=== PATIENT | female | born 1955 | race Caucasian/White ===

== ENCOUNTER 2021-07-14 13:53 | Emergency (ER) | payer OTHER, SELFPAY ==
--- NOTE | ~2021-07-14 | CT_ITS ---
EXAMINATION: CT diagnostic chest wo con DATE: 07/14/2021 17:10 INDICATION: Shortness of breath. Covid-positive. TECHNIQUE: Computed tomography (CT) of the chest was performed without intravenous contrast. Automate d exposure control and iterative reconstruction technique were employed. Exam dose: 365.75 mGy-cm to patrick exam DLP. COMPARISON: None FINDINGS: Heterogeneous enlarged left lobe of thyroid gland. There is mild primarily peripheral later al lingular and minimal left perihilar infiltrate. There are mild peripheral posteromedial bilateral lower lobe infiltrates or atelectasis, left greater than right. Middle lobe and left lower lobe calcified pulmonary granulomas. Calcified left hilar nodes. Normal heart size. Coronary artery calcification. No thoracic aortic aneurysm. No pericardial or pleu ral effusion. No hilar or mediastinal mass lesion or lymphadenopathy. Normal morphology of the adrenal glands. Very small sliding hiatal hernia. Diffuse idiopathic skeletal hyperostosis of the thoracic spine. 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 Reviewed, dictated and finalized at [facility] 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
[2021-07-14 14:45] VITALS: BP 157/67; PULSE 77; RESP 20; TEMP 36.3; O2SAT 98
--- NOTE | 2021-07-14 16:30 | ECG_ITS ---
Measurements Intervals [place] Rate: 70 P: 57 OR: 150 QRS: 14 QRSD: 85 T: 40 QT: 393 QTc: 426 Interpretive Statements SINUS RHYTHM POSSIBLE LEFT ATRIAL ENLARGEMENT LOW QRS VOLTAGE IN PRECORDIAL LEADS CONSIDER INFERIOR INFARCT, AGE INDETERMINATE BASELINE ARTIFACT- I, III, AVL, V5 ABNORMAL ECG Electronically Signed On 07-14-2021 20:31:40 CHILD ADVOCATE by Rajendra Adams D.O.
[2021-07-14] MEDS: ALBUTEROL SULFATE (*SP) INHALER 4 PUFF INHALATION (16:45)
[2021-07-14] MEDS: DEXAMETHASONE SOD PHOS INJ 4 MG/ML VIAL IV PUSH (16:50)
[2021-07-14 17:00] LABS: Base Excess ABG -0.2 mmol/L (0-2); Basophils Absolute Auto 0.01 K/mm3 (0.00-0.10); Basophils Percent Auto 0.2 % (0.0-1.0); Eosinophils Absolute Auto 0.01 K/mm3 (0.02-0.50); Eosinophils Percent Auto 0.2 % (1.0-6.0); HCO3 ABG 22.9 mmol/L (23-29); Hematocrit 40.7 % (35.0-49.0); Hemoglobin 13.3 g/dL (12.0-15.0); Lymphocytes Absolute Auto 2.06 K/mm3 (1.10-4.50); Lymphocytes Percent Auto 50.2 % (18.0-42.0); Mean Corpuscular HGB Conc 32.7 g/dL (32.0-36.0); Mean Corpuscular Hemoglobin 29.4 pg (27.0-31.0); Mean Platelet Volume 10.6 fl (9.2-11.8); Monocytes Absolute Auto 0.32 K/mm3 (0.10-0.90); Monocytes Percent Auto 7.8 % (2.0-11.0); Neutrophils Absolute Auto 1.7 K/mm3 (1.7-7.2); Neutrophils Percent Auto 41.6 % (50.0-70.0); Oxygen Content ABG 18.3 %vol (16.0-22.0); Oxygen Saturation ABG 96.4 % (95-97); Oxyhemoglobin 96.1 % (94-100); PCO2 ABG 32.7 mmHg (35-45); PO2 ABG 86.4 mmHg (80-90); Platelet Count Result 169 K/mm3 (150-420); Red Blood Count 4.52 M/mm3 (4.20-5.40); Red Cell Distribution Width 12.9 % (11.6-14.4); Total Hemoglobin 13.5 g/dL (12.0-18.0); White Blood Count 4.1 K/mm3 (4.8-10.8); pH ABG 7.46 (7.35-7.45)
[2021-07-14 17:02] LABS: Device ROOM AIR; Modified Allen's Test Pass; Site Drawn RIGHT RADIAL
[2021-07-14] MEDS: UMECLIDINIUM BROMIDE 62.5 MCG ELLIPTA 1 PUFF INHALATION ×2 (17:17→17:18)
[2021-07-14 17:22] LABS: Lactic Acid Reflex 1.1 mmol/L (0.4-2.0)
[2021-07-14 17:23] LABS: Alanine Aminotransferase 31 U/L (14-59); Albumin Level 3.5 g/dL (3.4-5.0); Alkaline Phosphatase 67 U/L (46-116); Anion Gap 8 mmol/L (8-16); Aspartate Amino Transferase 16 U/L (15-37); Bilirubin,Total 0.3 mg/dL (0.00-1.00); Blood Urea Nitrogen 18 mg/dL (7-18); Calcium 8.6 mg/dL (8.5-10.1); Carbon Dioxide 30 mmol/L (21-32); Chloride 102 mmol/L (98-108); Estimated CRCL calculation 93 ml/min; Estimated Glomerular Filt Rate > 60; Glucose 157 mg/dL (70-99); NT Pro B Type Natriuretic Pept 122 pg/mL (0-125); Osmolality Calculated 294 mOsm/kg (285-295); Potassium 3.5 mmol/L (3.5-5.1); Sodium 140 mmol/L (136-145); Total Protein 7.1 g/dL (6.4-8.2)
[2021-07-14 17:53] LABS: Influenza A QL RT-PCR Negative (Negative); Influenza B QL RT-PCR Negative (Negative); SARS-CoV-2 RNA PCR Positive (Negative)
[2021-07-14] MEDS: AZITHROMYCIN 250 MG TABLET 500 MG PO (18:34)
--- NOTE | 2021-07-14 18:50 | ED.SOB ---
HPI - SOB/Dyspnea General Chief Complaint: Shortness of Breath/Dyspnea Stated Complaint: shortness of breath /muscle weakness Time Seen by Provider: 07/14/21 13:55 Source: patient and RN notes reviewed Mode of arrival: ambulatory Limitations: no limitations History of Present Illness MD elicited complaint: shortness of breath Pertinent past history: other (recently covid-19+) Onset (ago): day(s) (2 days. ) Context: recent illness Timing: progressively worsening Severity: moderate Exacerbating factors: nothing Relieving factors: nothing Associated symptoms: dizziness Treatment prior to arrival: none Related Data Home oxygen amount: none Allergies Allergy/AdvReac Type Severity Reaction Status Date / Time No Known Allergies Allergy Mild Verified 02/07/08 14:36 Review of Systems Review of Systems: All systems reviewed & are unremarkable except as noted in HPI and below Respiratory: Respiratory: Reports cough and Reports dyspnea Neurologic: Reports dizziness PMFSH Past Medical History Medical History (Updated 07/16/21 @ 10:05 by Katina Herrera MD) Community acquired pneumonia COVID-19 Exam Const: General: no acute distress and alert Nutritional Appearance: well nourished Orientation/consciousness: patient oriented x3 Limitations: no limitations HENMT: Head: normal to inspection Ears: external ears normal and TM's normal bilaterally General nose exam: Normal external nose present and Normal nares present Face and sinus: normal facial exam and sinuses nontender Mouth: Yes lip normal and Yes moist mucous membranes Teeth and gingiva: dentition normal Throat: posterior oropharynx normal Eyes: Conjunctivae: conjunctivae normal Pupils: Equal, round and reactive pupils present EOM: EOMs intact bilaterally Neck: Neck: normal visual inspection Other: supple neck Chest: Chest palpation & inspection: normal inspection of the chest Resp: Effort & Inspection: normal respiratory effort Auscultation: crackles and rhonchi Cardio: Rate: regular rate Rhythm: regular rhythm GI: GI Palp: Yes Soft to palpation and No Tenderness to palpation present (GI) Auscultation: normal bowel sounds : General: Yes bladder normal to palpation and Yes no CVA tenderness Back/Spine/Pelvis: Back: no CVA tenderness Skin: General skin exam: normal color Neuro: General: patient oriented x3, moves all extremities, no meningeal signs, no focal motor deficits and CN's II-XI intact bilaterally Extrem: General: normal to inspection and no pedal edema Psych: Mental Status: mental status grossly normal Affect: normal affect Attitude: cooperative Thought content: Yes Normal thought content present Course Course Emergency Course: Pt was stable in the ED and was comfortable with going home. Reevaluation(s) Reevaluation #1: VSS. Pt had less SOB and dizziness in the ED. Date: 07/14/21 Time: 14:51 Vital Signs Vital signs: Vital Signs Temperature 36.3 C L 07/14/21 14:45 Pulse Rate 77 07/14/21 14:45 Respiratory Rate 20 07/14/21 14:45 Blood Pressure 157/67 H 07/14/21 14:45 Pulse Oximetry 98 07/14/21 14:45 Temperature 36.7 C 07/14/21 19:04 Pulse Rate 74 07/14/21 19:04 Respiratory Rate 18 07/14/21 19:04 Blood Pressure 137/52 L 07/14/21 19:04 Pulse Oximetry 97 07/14/21 19:04 MDM - SOB/Dyspnea Differential Diagnosis Differential diagnosis: Likely acute exacerbation of chronic obstructive airways disease, congestive heart failure, community acquired pneumonia and asthma with exacerbation Medical Records Attestation: I reviewed the patient's medical records. Lab Data Attestation: I reviewed the patient's lab results. Result diagrams: 07/14/21 16:56 07/14/21 16:56 Labs: Lab Results 07/14/21 07/14/21 07/14/21 Range/Units 16:56 16:56 16:56 WBC 4.1 L (4.8-10.8) K/mm3 RBC 4.52 (4.20-5.40) M/mm3 Hgb 13.3 (12.0-15.0) g/dL Hct 40.7 (35.0-49.0)
[2021-07-14 19:04] VITALS: BP 137/52; PULSE 74; RESP 18; TEMP 36.7; O2SAT 97
== END 2021-07-14 19:09 | disposition home or self-care (01) ==
PROVIDERS: Emergency Provider Emergency Medicine; PCP Physician Assistant
DX: U07.1 COVID-19 (principal); J18.9 Pneumonia, unspecified organism
CPT/HCPCS: 36415; 36600; 71250; 80053; 82805; 83605; 83880; 84484; 85025; 87502; 93005; 96365; 96375; 99283; 99284; A9270; C9803; J0696; J1100; U0003; U0005

== ENCOUNTER 2022-04-07 06:55 | Emergency (ER) | payer MEDICARE, BC, SELFPAY ==
--- NOTE | ~2022-04-07 | CT_ITS ---
EXAMINATION: CT abdomen pelvis wo con DATE: 04/07/2022 07:54 INDICATION: Left flank pain. TECHNIQUE: Computed tomography (CT) of the abdomen and pelvis was performed without intravenous contr ast. Automated exposure control and iterative reconstruction technique were employed. The dose-length product was 634.87 mGy-cm. COMPARISON: None. FINDINGS: The visualized portions of the lung bases demonstrate mild atelectasis. A calcified left gwendolyn ng nodule is consistent with old granulomas disc disease. No pleural effusion. The heart size is norm al. No pericardial effusion. The liver, gallbladder, spleen, pancreas, and right kidney are normal. T here is mild left hydronephrosis and hydroureter. There is a 3 mm stone in left kidney. There are no dilated loops of bowel. The appendix is normal. There are no pathologically enlarged lymph nodes. The re is no free intraperitoneal fluid. There is a right inguinal hernia containing fat. There is a 4.1 cm fibroid in the uterus. There is severe lower lumbar spondylosis. IMPRESSION: 1. Mild left hydronephrosis and hydroureter. No obstructing stone. 2. 3 mm nonobstructing left kidney stone. Reviewed, dictated and finalized at [facility].
[2022-04-07 07:00] VITALS: BP 167/69; PULSE 81; RESP 16; TEMP 36.6; O2SAT 99
[2022-04-07 07:13] VITALS: BP 167/69; PULSE 81; RESP 16; TEMP 36.6; O2SAT 99
[2022-04-07 07:32] LABS: Basophils Absolute Auto 0.02 K/mm3 (0.00-0.10); Basophils Percent Auto 0.3 % (0.0-1.0); Eosinophils Absolute Auto 0.09 K/mm3 (0.02-0.50); Eosinophils Percent Auto 1.6 % (1.0-6.0); Hematocrit 37.3 % (35.0-42.0); Hemoglobin 12.5 g/dL (11.7-13.8); Immature Granulocyte Absolute 0.03 K/mm3 (0.00-0.00); Immature Granulocyte Percent A 0.5 % (0.0-0.0); Lymphocytes Percent Auto 27.9 % (18.0-42.0); Mean Corpuscular HGB Conc 33.5 g/dL (32.0-36.0); Mean Corpuscular Hemoglobin 29.9 pg (27.0-31.0); Mean Corpuscular Volume 89.2 fL (78.0-102.0); Mean Platelet Volume 10.2 fl (9.2-11.8); Monocytes Absolute Auto 0.27 K/mm3 (0.10-0.90); Monocytes Percent Auto 4.7 % (2.0-11.0); Neutrophils Absolute Auto 3.7 K/mm3 (1.7-7.2); Platelet Count Result 216 K/mm3 (150-420); Red Blood Count 4.18 M/mm3 (4.20-5.40); Red Cell Distribution Width 12.9 % (11.6-14.4); White Blood Count 5.7 K/mm3 (4.8-10.8)
[2022-04-07] MEDS: SODIUM CHLORIDE 0.9% IV 1,000 ML 999 ML IV CONT (07:32)
[2022-04-07 07:33] LABS: Appearance Urine Clear (Clear); Bilirubin Urine Negative (Negative); Blood Urine Negative (Negative); Glucose Urine UA Negative (Negative); Ketones Urine Negative (Negative); Leukocyte Esterase Ur Negative LEU/UL (Negative); Nitrate Urine Negative (Negative); Protein Urine Negative (Negative); Urobilinogen Urine 0.2 mg/dL (0.2-1.0)
[2022-04-07] MEDS: ONDANSETRON INJ 4 MG/2 ML VIAL IV PUSH (07:33)
[2022-04-07] MEDS: KETOROLAC 30 MG/ML VIAL (*BKC) IV PUSH (07:34)
[2022-04-07 07:41] LABS: Add Urine Microscopic? NO; Color Urine Light Yellow (Yellow)
[2022-04-07 07:49] LABS: Alanine Aminotransferase 21 U/L (14-59); Albumin Level 3.6 g/dL (3.4-5.0); Alkaline Phosphatase 68 U/L (46-116); Anion Gap 8 mmol/L (8-16); Aspartate Amino Transferase 14 U/L (15-37); Bilirubin,Total 0.3 mg/dL (0.00-1.00); Blood Urea Nitrogen 15 mg/dL (7-18); Calcium 8.5 mg/dL (8.5-10.1); Carbon Dioxide 26 mmol/L (21-32); Chloride 103 mmol/L (98-108); Estimated CRCL calculation 73 ml/min; Estimated Glomerular Filt Rate > 60; Glucose 192 mg/dL (70-99); Osmolality Calculated 289 mOsm/kg (285-295); Sodium 137 mmol/L (136-145)
[2022-04-07 07:50] LABS: CRP < 0.2 mg/dL (0.0-0.9)
[2022-04-07 07:54] LABS: Lactic Acid Reflex 1.4 mmol/L (0.4-2.0)
--- NOTE | 2022-04-07 08:02 | ED.FEMALEGU ---
HPI - Female Genitourinary General Chief complaint: Urogenital-Female Stated complaint: POSSIBLE KIDNEY STONE Time Seen by Provider: 04/07/22 07:10 Source: patient Mode of arrival: ambulatory Limitations: no limitations History of Present Illness HPI Narrative: this is a 67-year-old female that has a history of kidney stones saw her urologist recently and was scheduled for an ultrasound. Currently the patient states that she was woken up early this morning with left flank pain with nausea with no vomiting no dysuria no hematuria no fever chills, no chest pain or shortness of breath. MD elicited complaint: flank pain Onset (ago): hour(s) Severity: moderate Severity scale (1-10): 8 Quality of pain: dull Consistency: constant Related Data Home Medications Medication Instructions Recorded Confirmed liraglutide 0.6 mg/0.1 mL (18 mg/3 0.6 mg subcut WEEKLY 04/07/22 04/07/22 mL) subcutaneous pen injector (Victoza 3-Serg) metformin 500 mg tablet 500 mg PO DAILY 04/07/22 04/07/22 Allergies Allergy/AdvReac Type Severity Reaction Status Date / Time cortisone Allergy Hives Verified 04/07/22 07:15 Review of Systems Review of Systems: All systems reviewed & are unremarkable except as noted in HPI and below PMFSH Past Medical History Medical History Community acquired pneumonia COVID-19 Exam Const: General: healthy appearing and no acute distress HENMT: Head: normal to inspection Ears: external ears normal Face and sinus: normal facial exam Mouth: Yes Normal oral and palatal mucosa present Eyes: Conjunctivae: conjunctivae normal Pupils: Equal, round and reactive pupils present EOM: EOMs intact bilaterally Neck: Neck: normal visual inspection Chest: Chest palpation & inspection: normal inspection of the chest Resp: Effort & Inspection: normal respiratory effort Auscultation: clear to auscultation bilaterally Cardio: Rate: regular rate Rhythm: regular rhythm GI: GI Palp: Yes Soft to palpation Auscultation: normal bowel sounds : General: Yes bladder normal to palpation Back/Spine/Pelvis: Back: CVA tenderness ( Left flank) Skin: General skin exam: normal color Rashes: no rashes Wounds: no wounds Neuro: General: patient oriented x3, moves all extremities and no meningeal signs Cranial nerves: Yes Nystagmus not present Speech: normal speech Extrem: General: normal to inspection Psych: Appearance: grossly normal Mental Status: mental status grossly normal Course Course Emergency Course: lab work performed and reviewed with patient CT scan performed and reviewed with patient, patient received IV fluids IV Zofran and IV Toradol symptoms have improved. explained to patient that the CT scan showed left hydroureter without obstruction and no ureter stone visualized. And advised to follow-up with urologist and obtain ultrasound on outpatient basis. Vital Signs Vital signs: Vital Signs Temperature 36.6 C 04/07/22 07:00 Pulse Rate 81 04/07/22 07:00 Respiratory Rate 16 04/07/22 07:00 Blood Pressure 167/69 H 04/07/22 07:00 Pulse Oximetry 99 04/07/22 07:00 Oxygen Delivery Room Air 04/07/22 07:00 Temperature 36.6 C 04/07/22 07:13 Pulse Rate 81 04/07/22 07:13 Respiratory Rate 16 04/07/22 07:13 Blood Pressure 167/69 H 04/07/22 07:13 Pulse Oximetry 99 04/07/22 07:13 Oxygen Delivery Room Air 04/07/22 07:13 MDM - Female Genitourinary Lab Data Result diagrams: 04/07/22 07:28 04/07/22 07:27 Labs: Lab Results 04/07/22 04/07/22 04/07/22 Range/Units 07:12 07:27 07:27 WBC (4.8-10.8) K/mm3 RBC (4.20-5.40) M/mm3 Hgb (11.7-13.8) g/dL Hct (35.0-42.0) % MCV (78.0-102.0) fL MCH (27.0-31.0) pg MCHC (32.0-36.0) g/dL RDW (11.6-14.4) % Plt Count (150-420) K/mm3 MPV (9.2-11.8) fl Immature Gran % (Auto) (0.0-0.0) %
[2022-04-07 08:47] VITALS: BP 131/72; PULSE 76; RESP 16; TEMP 36.2; O2SAT 98
== END 2022-04-07 08:45 | disposition home or self-care (01) ==
PROVIDERS: Emergency Provider Emergency Medicine; PCP Physician Assistant
DX: N13.4 Hydroureter (principal)
CPT/HCPCS: 36415; 74176; 80053; 81003; 83605; 85025; 86140; 96374; 96375; 99284; J1885; J2405; J7030

== ENCOUNTER 2022-04-11 08:43 | Outpatient (CLI) | payer MEDICARE, BC, SELFPAY ==
--- NOTE | ~2022-04-11 | US_ITS ---
US retroperitoneal comp 04/11/2022 10:07 Procedure: Realtime transabdominal ultrasound of the kidneys and bladder. Indication: Nephrolithiasis Comparison: CT dated 04/07/2022 Findings: Renal echotexture is normal bilaterally without hydronephrosis, contour deforming mass. The re is a 4 mm left renal stone at the lower pole. No hydronephrosis.. The right kidney measures 11.8 c m and left kidney measures 12.0 cm. Bladder within normal limits. Prevoid volume is 6 29 cc. Postvoi d volume is 47 cc. Impression: 1: Nonobstructing lower pole left renal stone measuring 4 mm. 2: Small post void residual. Reviewed, dictated and finalized at [facility]. Impression: 1: Nonobstructing lower pole left renal stone measuring 4 mm. 2: Small post void residual.
== END 2022-04-11 08:44 | disposition home or self-care (01) ==
LOC: CHSIMG 08:47
PROVIDERS: PCP Physician Assistant
DX: N20.0 Calculus of kidney (principal)
CPT/HCPCS: 76770

== ENCOUNTER 2022-05-14 15:43 | Emergency (ER) | payer MEDICARE, SELFPAY ==
[2022-05-14] VITALS (14 sets, daily range): BP systolic 148–170; BP diastolic 64–82; PULSE 82–109; RESP 14–20; TEMP 36.9–37.2; O2SAT 94–98
--- NOTE | ~2022-05-14 | CT_ITS ---
EXAMINATION: CT diagnostic chest wo con DATE: 05/14/2022 18:05 INDICATION: Anterior chest wall pain, cough, shortness of breath for 2 weeks. TECHNIQUE: Computed tomography (CT) of the chest was performed without intravenous contrast. Automate d exposure control and iterative reconstruction technique were employed. Exam dose: 363.42 mGy-cm to patrick exam DLP. COMPARISON: 07/14/2021 CTA chest FINDINGS: Interval resolution of bilateral infiltrates including left upper lobe and both lower lobes since 06/17. Persistent large left thyroid lobe enlargement consistent with goiter or thyroid neoplasm. This measu res up to approximately 4.2 cm, stable since 07/14/2021. No hilar or mediastinal mass lesion or lymphadenopathy. Normal heart size. No pericardial or pleural effusion. Coronary artery calcifications are noted. No thoracic aortic aneurysm. Adrenal glands are normal. Diverticulosis of the colon. 3.5 mm peripheral right upper lobe pulmonary nodule or scarring, stable or slightly increased since . Calcified 5.5 mm middle lobe nodule, likely a calcified pulmonary granuloma. Multiple left lower lobe calcified pulmonary granulomas and multiple calcified left hilar nodes. Minimal atelectasis and/or fibrotic change in the lower lobes. No pulmonary consolidation. Diffuse idiopathic skeletal hyperostosis of the thoracic spine. No cyst or lytic or osteoblastic lesi ons. IMPRESSION: Resolution of bilateral focal pulmonary infiltrates since 07/14/2021 Old granulomatous disease Left thyroid goiter or thyroid neoplasm, relatively stable in appearance since 07/14/2021, but not com pletely imaged. Consider thyroid ultrasound for more definitive evaluation Reviewed, dictated and finalized at [facility] Reviewed, dictated and finalized at [facility] 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 Consider thyroid ultrasound for more defi nitive evaluation
--- NOTE | 2022-05-14 15:46 | ECG_ITS ---
Measurements Intervals [place] Rate: 101 P: 60 MT: 149 QRS: 25 QRSD: 76 T: 62 QT: 329 QTc: 427 Interpretive Statements SINUS TACHYCARDIA DELAYED PRECORDIAL R/S TRANSITION LOW QRS VOLTAGE IN PRECORDIAL LEADS CONSIDER INFERIOR INFARCT, AGE INDETERMINATE BORDERLINE ST-T WAVE ABNORMALITY- HIGH LATERAL LEADS ABNORMAL ECG COMPARED TO ECG 07/14/2021 16:45:15 SINUS TACHYCARDIA NOW PRESENT Electronically Signed On 05-14-2022 16:14:30 CAD DEVELOPER by Rajendra Adams D.O.
[2022-05-14] MEDS: MORPHINE SULFATE (*CRX) 2 MG/ML INJ IV PUSH (16:26)
[2022-05-14] MEDS: ONDANSETRON INJ 4 MG/2 ML VIAL IV PUSH (16:27)
[2022-05-14] MEDS: NITROGLYCERIN SL 0.4 MG TABLET SUBLINGUAL (16:28)
[2022-05-14] MEDS: ASPIRIN 325 MG ENTERIC TABLET PO (16:28)
[2022-05-14] MEDS: SODIUM CHLORIDE 0.9% IV 1,000 ML 999 ML IV CONT (16:28)
[2022-05-14 16:32] LABS: Basophils Absolute Auto 0.03 K/mm3 (0.00-0.10); Basophils Percent Auto 0.6 % (0.0-1.0); Eosinophils Absolute Auto 0.05 K/mm3 (0.02-0.50); Hematocrit 39.8 % (35.0-42.0); Hemoglobin 13.1 g/dL (11.7-13.8); Immature Granulocyte Absolute 0.02 K/mm3 (0.00-0.00); Immature Granulocyte Percent A 0.4 % (0.0-0.0); Lymphocytes Absolute Auto 0.64 K/mm3 (1.10-4.50); Lymphocytes Percent Auto 12.7 % (18.0-42.0); Mean Corpuscular HGB Conc 32.9 g/dL (32.0-36.0); Mean Corpuscular Hemoglobin 30.1 pg (27.0-31.0); Mean Corpuscular Volume 91.5 fL (78.0-102.0); Mean Platelet Volume 10.5 fl (9.2-11.8); Monocytes Absolute Auto 0.43 K/mm3 (0.10-0.90); Monocytes Percent Auto 8.5 % (2.0-11.0); Neutrophils Absolute Auto 3.9 K/mm3 (1.7-7.2); Neutrophils Percent Auto 76.8 % (50.0-70.0); Platelet Count Result 191 K/mm3 (150-420); Red Blood Count 4.35 M/mm3 (4.20-5.40); Red Cell Distribution Width 13.2 % (11.6-14.4)
[2022-05-14 16:51] LABS: Alanine Aminotransferase 19 U/L (14-59); Albumin Level 3.8 g/dL (3.4-5.0); Alkaline Phosphatase 80 U/L (46-116); Anion Gap 10 mmol/L (8-16); Aspartate Amino Transferase 10 U/L (15-37); Bilirubin,Total 0.2 mg/dL (0.00-1.00); Blood Urea Nitrogen 20 mg/dL (7-18); Calcium 8.8 mg/dL (8.5-10.1); Carbon Dioxide 28 mmol/L (21-32); Chloride 103 mmol/L (98-108); Estimated CRCL calculation 71 ml/min; Estimated Glomerular Filt Rate > 60; Glucose 190 mg/dL (70-99); Osmolality Calculated 299 mOsm/kg (285-295); Sodium 141 mmol/L (136-145); Total Protein 7.5 g/dL (6.4-8.2); Troponin I 6.8 ng/L (0.00-60.4)
[2022-05-14 17:16] LABS: Influenza A QL RT-PCR Negative (Negative); Influenza B QL RT-PCR Negative (Negative); SARS-CoV-2 RNA PCR Positive (Negative); Strep Group A RT-PCR Not Detected (Negative)
[2022-05-14 17:56] LABS: Appearance Urine Clear (Clear); Bilirubin Urine Negative (Negative); Blood Urine Negative (Negative); Glucose Urine UA Negative (Negative); Ketones Urine Negative (Negative); Leukocyte Esterase Ur Trace (Negative); Nitrate Urine Negative (Negative); Protein Urine Negative (Negative); Specific Grav Ur 1.025 (1.010-1.020); Urobilinogen Urine 0.2 mg/dL (0.2-1.0)
[2022-05-14 18:08] LABS: Add Urine Microscopic? YES; Bacteria Urine 2+ /hpf; Calcium Oxalate Crystals Urine Present /hpf; Color Urine Light Yellow (Yellow); RBC Urine 0-2 /hpf (0-2); Squamous Epithelial Cell Urine Few /hpf (Few)
--- NOTE | 2022-05-14 19:12 | PC.NURSE ---
Pt report given to suzanne yanez. no questions or concerns at this time. pt updated about change of staff.
[2022-05-14] MEDS: cefTRIAXone 1 GM, LIDOCAINE HCL 1% LOCAL INJ 2.1 ML IM (19:21)
--- NOTE | 2022-05-14 19:21 | ED.CHESTPAIN ---
HPI - Chest Pain General Chief Complaint: Chest Pain Stated Complaint: chest pain Time Seen by Provider: 05/14/22 15:46 Source: patient and RN notes reviewed Mode of arrival: ambulatory Limitations: no limitations History of Present Illness complaint: chest pain (ant chest wall pain x 2 mos.) Onset (ago): week(s) (2) Timing of current episode: constant Prior episodes: Yes Onset: during rest and during exertion Pain location: substernal Pain radiation: none Severity: mild Pain scale (0-10): 4 Quality: aching Relieving factors: nothing Exacerbating factors: nothing Treatment prior to arrival: none Risk Factors Coronary artery disease risk factors: diabetes Related Data Home Medications Medication Instructions Recorded Confirmed liraglutide 0.6 mg/0.1 mL (18 mg/3 0.6 mg subcut WEEKLY 04/07/22 05/14/22 mL) subcutaneous pen injector (Victoza 3-Serg) metformin 500 mg tablet 500 mg PO DAILY 04/07/22 05/14/22 Allergies Allergy/AdvReac Type Severity Reaction Status Date / Time cortisone Allergy Hives Verified 04/07/22 07:15 Review of Systems Review of Systems: All systems reviewed & are unremarkable except as noted in HPI and below Constitutional: Constitutional: Reports no additional constitutional complaints Eyes: Eyes: Reports no additional eye complaints ENT: Reports system reviewed and no additional complaints, except as documented Cardiovascular: Cardiovascular: Reports no additional cardiovascular complaints and Reports chest pain Respiratory: Respiratory: Reports no additional respiratory complaints Gastrointestinal: Gastrointestinal: Reports no additional gastrointestinal complaints Genitourinary: Genitourinary: Reports no additional female genitourinary complaints Musculoskeletal: Musculoskeletal: Reports no additional musculoskeletal complaints Integumentary/Breasts: Skin/Breast: Reports system reviewed and no additional complaints, except as docu Neurologic: Reports system reviewed and no additional complaints, except as documented Psychiatric: Psychiatric: Reports no additional psychiatric complaints Endocrine: Endocrine: Reports no additional endocrine complaints Hematologic/Lymphatic: Hematologic/Lymphatic: Reports no additional hematologic/lymphatic complaints Allergic/Immunologic: Allergic/Immunologic: Reports no additional allergic/immunologic complaints PMFSH Past Medical History Medical History (Updated 05/14/22 @ 19:36 by Katina Herrera MD) Chest wall pain Community acquired pneumonia COVID-19 Exam Const: General: no acute distress and well nourished Nutritional Appearance: well nourished Orientation/consciousness: patient oriented x3 Limitations: no limitations HENMT: Head: normal to inspection Ears: external ears normal, TM's normal bilaterally and EAC's normal Face/Nose/Sinus: Normal external nose present, Normal nares present, normal facial exam and sinuses nontender Face and sinus: normal facial exam and sinuses nontender Mouth: Yes Normal oral and palatal mucosa present and Yes moist mucous membranes Teeth and gingiva: dentition normal Throat: posterior oropharynx normal Eyes: Conjunctivae: conjunctivae normal Pupils: Equal, round and reactive pupils present EOM: EOMs intact bilaterally Neck: Neck: normal visual inspection, no lymphadenopathy and no meningeal signs Chest: Chest palpation & inspection: normal inspection of the chest and no tenderness Resp: Effort & Inspection: normal respiratory effort Auscultation: clear to auscultation bilaterally Cardio: Rate: regular rate Rhythm: regular rhythm GI: GI Palp: Yes Soft to palpation and No Tenderness to palpation present (GI) Auscultation: normal bowel sounds : General: Yes bladder normal to palpation and Yes no CVA tenderness Bimanual exam- vagina & uterus: bladder normal to palpation Back/Spine/Pelvis: Back: no CVA tenderness Skin: General skin exam: normal color Rashes: no rashes
[2022-05-14] MEDS: ACETAMINOPHEN 325 MG TABLET 650 MG PO (19:25)
== END 2022-05-14 19:34 | disposition home or self-care (01) ==
PROVIDERS: Emergency Provider Emergency Medicine; PCP Physician Assistant
DX: R07.89 Other chest pain (principal); N39.0 Urinary tract infection, site not specified; U07.1 COVID-19
CPT/HCPCS: 36415; 71250; 80053; 81001; 83605; 84484; 85025; 87636; 87651; 93005; 96361; 96372; 96374; 96375; 99284; A9270; J0696; J2270; J2405; J7030

== ENCOUNTER 2023-02-09 02:39 | Emergency (ER) | payer MEDICARE, SELFPAY ==
--- NOTE | ~2023-02-09 | XR_ITS ---
Left Knee Technique: AP, lateral, and oblique views were obtained. Clinical History: Pain Findings: No fracture or dislocation is seen. Osseous alignment is anatomic. Joint spaces are preserv ed without degenerative or erosive change. Small to moderate joint effusion is seen. Impression: Small to moderate joint effusion. No fracture or dislocation. Reviewed, dictated and finalized at [facility]. Impression: Small to moderate joint effusion. No fracture or dislocation.
[2023-02-09 02:46] VITALS: BP 163/69; PULSE 84; RESP 18; TEMP 36.6; O2SAT 96
--- NOTE | 2023-02-09 02:47 | ED.EXTPRO ---
HPI - Extremity Problem General Chief complaint: Extremity Problem,Nontraumatic Stated complaint: L Knee Pain Time Seen by Provider: 02/09/23 02:46 Source: patient Mode of arrival: ambulatory Limitations: no limitations History of Present Illness HPI Narrative: 67 yo female presents to the emergency room for left knee pain. Said pain is severe, excruciating, mostly in the lateral and posterior knee. Pain radiates to the lower left leg as well. Difficulty extending the knee. 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 She does not take any medication at home except some Tylenol. Said she doesn't like to take any medication. No history of trauma or injury. MD Complaint: joint paint Onset (ago): day(s) Pain Consistency: constant Location: left Severity scale (1-10): 10 Quality: aching and constant Radiation: distal Relieving factors: nothing Exacerbating factors: range of motion, weight bearing and walking Associated symptoms: denies other symptoms Related Data Home Medications Medication Instructions Recorded Confirmed metformin 500 mg tablet 500 mg PO DAILY 04/07/22 02/09/23 tramadol 50 mg tablet 50 mg PO BID PRN Pain 02/09/23 02/09/23 Allergies Allergy/AdvReac Type Severity Reaction Status Date / Time cortisone Allergy Hives Verified 04/07/22 07:15 Review of Systems Constitutional: Constitutional: Reports as per HPI and Reports no additional constitutional complaints Eyes: Eyes: Reports as per HPI and Reports no additional eye complaints ENT: Reports system reviewed and no additional complaints, except as documented and Reports as per HPI Cardiovascular: Cardiovascular: Reports as per HPI and Reports no additional cardiovascular complaints Respiratory: Respiratory: Reports as per HPI and Reports no additional respiratory complaints Gastrointestinal: Gastrointestinal: Reports as per HPI and Reports no additional gastrointestinal complaints Genitourinary: Genitourinary: Reports as per HPI Musculoskeletal: Musculoskeletal: Reports no additional musculoskeletal complaints and Reports as per HPI Integumentary/Breasts: Skin/Breast: Reports system reviewed and no additional complaints, except as docu and Reports as per HPI Neurologic: Reports system reviewed and no additional complaints, except as documented and Reports as per HPI Psychiatric: Psychiatric: Reports no additional psychiatric complaints and Reports as per HPI Endocrine: Endocrine: Reports no additional endocrine complaints and Reports as per HPI Hematologic/Lymphatic: Hematologic/Lymphatic: Reports no additional hematologic/lymphatic complaints and Reports as per HPI Allergic/Immunologic: Allergic/Immunologic: Reports no additional allergic/immunologic complaints and Reports as per HPI [facility] Past Medical History Medical History (Updated 02/09/23 @ 03:02 by Chepe Rodriguez MD) Chest wall pain Community acquired pneumonia COVID-19 Exam Const: General: cooperative, healthy appearing, comfortable, no acute distress, well developed, alert, awake, average body habitus and well nourished Nutritional Appearance: average body habitus and well nourished Orientation/consciousness: oriented to person, oriented to place and oriented to time Limitations: no limitations HENMT: Head: normal to inspection Ears: hearing grossly normal bilaterally, external ears normal and TM's normal bilaterally Face/Nose/Sinus: Normal external nose present, Normal nares present, No nasal polyps present, Normal nasal mucous membranes and turbinates present, Normal septum present, No nasal discharge present, normal facial exam, sinuses nontender and face symmetric Face and sinus: normal facial exam, sinuses nontender and face symmetric Mouth: Yes Normal oral and palatal mucosa present, Yes lip normal, Yes tongue normal, Yes Normal salivary glands and ducts present, Yes oropharynx normal and Yes moist mucous membranes Teeth and gingiva: dentition normal and gingiva normal
[2023-02-09] MEDS: KETOROLAC 30 MG/ML VIAL (*BKC) IM (03:01)
[2023-02-09 03:32] VITALS: BP 144/85; PULSE 74; RESP 18; O2SAT 99
== END 2023-02-09 03:35 | disposition home or self-care (01) ==
LOC: CHSED 03:25
PROVIDERS: Emergency Provider Emergency Medicine; PCP Internal Medicine
DX: M71.22 Synovial cyst of popliteal space [Baker], left knee (principal); M25.562 Pain in left knee; Z79.84 Long term (current) use of oral hypoglycemic drugs; Z79.891 Long term (current) use of opiate analgesic
CPT/HCPCS: 73564; 96372; 99283; J1885